=== PATIENT | male | born 1970 | race Caucasian/White ===

== ENCOUNTER 2019-08-23 08:00 | Outpatient (CLI) | payer OTHER, SELFPAY ==
--- NOTE | 2019-08-23 08:02 | ECG_ITS ---
Measurements Intervals [place] Rate: 69 P: 34 HI: 181 QRS: 16 QRSD: 95 T: 20 QT: 370 QTc: 396 Interpretive Statements SINUS RHYTHM DELAYED PRECORDIAL R/S TRANSITION BASELINE ARTIFACT- V3-V6 BORDERLINE ECG Electronically Signed On 08-23-2019 8:29:38 SENIOR ACCOUNTING SPECIALIST by Otto Sidhu D.O.
== END 2019-08-23 08:01 | disposition home or self-care (01) ==
LOC: ANHSURGERY 08:02
PROVIDERS: PCP Emergency Medicine; Visit Provider Surgery
DX: I25.2 Old myocardial infarction (principal)
CPT/HCPCS: 93005

== ENCOUNTER 2019-09-01 00:05 | Day surgery (SDC) | payer OTHER, SELFPAY ==
[2019-08-18 13:32] VITALS: BMI 25.3
--- NOTE | 2019-08-29 12:56 | PM.SD ---
Same Day Admit/Disch: HPI History of Present Illness Chief complaint: Umbilical Hernia Narrative: Miquel Almazan is a 49 year old male Who has had an umbilical bulge for quite some time. He was seen in our office about 1 year ago and diagnosed with an umbilical hernia. The hernia was really not bothersome and patient decided to hold off on surgery. The bulge however is gotten larger and occasionally tender. He is unable to reduce the hernia. He was seen again in the office in June and is now taken to surgery for umbilical hernia repair possibly with mesh. The patient has had a previous heart attack with interventional stenting. He does have any ejection fraction of 50%. 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 Same Day Admit/Disch: Med Pre-admit Medications Home Medications Medication Instructions Recorded Confirmed Type atorvastatin 40 mg tablet 40 mg PO DAILY 06/24/19 09/01/19 History carvedilol 3.125 mg tablet 3.125 mg PO BID 06/24/19 09/01/19 History lisinopril 20 mg tablet 20 mg PO DAILY 06/24/19 09/01/19 History pantoprazole 40 mg tablet,delayed 40 mg PO DAILY tablet 06/24/19 09/01/19 History release aspirin 81 mg PO DAILY 08/18/19 09/01/19 History hydrocodone-acetaminophen 1 - 2 tablet PO Q6H PRN #7 tablet 09/01/19 Rx ketorolac 10 mg PO Q6H 4 Days #16 tablet 09/01/19 Rx Exam Const: General: comfortable, no acute distress, alert and awake HENMT: Head: normocephalic and atraumatic Mouth: Yes Normal oral and palatal mucosa present Eyes: Conjunctivae: conjunctivae normal Pupils: Equal, round and reactive pupils present EOM: EOMs intact bilaterally Neck: Neck: normal visual inspection, no lymphadenopathy and nontender Resp: Effort & Inspection: normal respiratory effort Auscultation: clear to auscultation bilaterally Cardio: Rate: regular rate Rhythm: regular rhythm Heart sounds: no gallops, no murmurs and no rubs GI: Inspection: non-distended and visible herniation GI Palp: Yes Soft to palpation, No Tenderness to palpation present (GI), No Hepatomegaly present, No Splenomegaly present, Yes Hernia present ( Umbilical hernia primarily above the navel. Nontender. ) and No Ascites present Auscultation: normal bowel sounds Skin: Lesions: no lesions Rashes: no rashes Neuro: General: no focal motor deficits and CN's II-XI intact bilaterally Cranial nerves: Yes Equal, round and reactive pupils present, Yes Bilaterally intact EOM present, Yes facial symmetry and Yes Midline tongue present Speech: normal speech Motor exam (neuro): 5/5 motor strength present throughout and Motor abnormalities not present Extrem: General: no clubbing, cyanosis or edema and edema Psych: Affect: normal affect Thought process: Normal thought process present Insight: Good insight present (Psych) DS: Summary Time Spent with Patient Time attestation: Total time spent providing and/or coordinating discharge services: DS: Diagnosis Admitting Diagnosis Admitting Diagnosis: Umbilical hernia Discharge Diagnosis (1) Umbilical hernia: Qualifiers: Obstruction and gangrene presence: without obstruction or gangrene Qualified Code(s): K42.9 - Umbilical hernia without obstruction or gangrene Code(s): K42.9 - Umbilical hernia without obstruction or gangre
[2019-09-01] MEDS: LACTATED RINGERS 1,000 ML 30 ML IV CONT (09:57)
--- NOTE | 2019-09-01 10:15 | WPDHPUPDATE1 ---
History and Physical Update Update Date/Time: 09/01/19 10:15 History and Physical has been reviewed, including an updated exam of the patient. There are NO changes in the patient's condition. Risks, benefits, and alternatives have been discussed and questions answered. Patient agrees to proceed with procedure.
--- NOTE | 2019-09-01 10:26 | P.PNAN_ITS ---
Anes - Initial Pre Proc Eval Procedure: Operation Date: 09/01/19 10:30 Proposed Procedures p Umbilical Hernia Repair, Possible Mesh - Cesar Mcpherson MD Date/Time: 09/01/19 10:26 Surgeon: Cesar Mcpherson MD Pre Op Diagnosis: Umbilical Hernia Patient Data Age: 49 Gender: M Height: 6 ft 1 in Weight: 90.3 kg Allergies Allergy/AdvReac Type Severity Reaction Status Date / Time No Known Allergies Allergy Unverified 09/01/19 09:40 Home Medications Medication Instructions Recorded Confirmed Type atorvastatin 40 mg tablet 40 mg PO DAILY 06/24/19 09/01/19 History carvedilol 3.125 mg tablet 3.125 mg PO BID 06/24/19 09/01/19 History lisinopril 20 mg tablet 20 mg PO DAILY 06/24/19 09/01/19 History pantoprazole 40 mg tablet,delayed 40 mg PO DAILY tablet 06/24/19 09/01/19 History release aspirin 81 mg PO DAILY 08/18/19 09/01/19 History Patient hx anesthesia problems: none Family hx anesthesia problems: none [facility] Past Medical History Medical History History of gastroesophageal reflux (GERD) History of heart attack Surgical History Surgical History History of cardiac cath widows maker heart attack History of hemorrhoidectomy Family History Family History Father Hypertension Sibling Hypertension Unknown Hypertension Social History Social History Smoking status: Never smoker Alcohol intake: current 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 Questions were solicited and answers provided to the satisfaction of the patient/family/POA.
[2019-09-01] MEDS: ceFAZolin 2 GM/D5W 50 ML 2 GM/50 ML BAG IVPB (10:33)
[2019-09-01 11:24] VITALS: BP 130/75; PULSE 64; RESP 20; O2SAT 96
--- NOTE | 2019-09-01 11:25 | PM.PROC ---
Procedure Note - Detailed Date of procedure: 09/01/19 Pre-op diagnosis: Umbilical Hernia Umbilical hernia Post-op diagnosis: same Procedure performed: Umbilical hernia repair with 4.6 cm Parietex underlay mesh Description of procedure: Patient was taken to the operating room and IV sedation was administered. Prep and drape was carried out. The proposed incision along the upper margin of the umbilicus was marked on the skin. Local anesthetic was infiltrated into the skin and the deeper subcutaneous tissues. Incision was made and dissection was carried down through the skin and to the hernia sac. The sac was then dissected free from the umbilical skin and the surrounding subcutaneous tissues. It was dissected down to its neck. Additional local anesthetic was infiltrated into the neck and the fascia surrounding the neck of the hernia sac. The sac was then amputated at its neck. The subcutaneous was undermined around the hernia defect. Additional local was infiltrated around the fascia. I placed a finger inside the hernia defect and checked for any abdominal wall adhesions in the area. None were found. No other hernias were noted. A 4.6 cm Parietex [place] was chosen. It was folded and placed in the defect. Once it symmetrically covered the defect, I placed cranial and caudal transfascial sutures of 0 Ethibond. These sutures were placed in such a fashion that, when tied, they would advance the edges of the hernia defect towards 1 another. These sutures were tied and had the desired effect. I then closed the hernia defect with [id number] mattress sutures of 0 Ethibond. The repair looked quite satisfactory. I then infiltrated additional local all around the areas of the repair. The umbilical skin was tacked to the fascia with 3 0 Vicryl suture. The subcutaneous was closed with 3 0 Vicryl. Subcuticular interrupted 4 O Vicryl skin stitches were placed. The skin was then closed with running 4 0 Monocryl subcuticular suture. Wound was dressed with Exofin surgical adhesive. The patient was awakened and taken to recovery in good condition. Counts were correct x2. Implants: 4.6 cm Parietex hernia mesh Anesthesia: MAC and local (0.5% Marcaine with Exparel) Surgeon: Cesar Mcpherson MD Payroll Accounting Clerk: Jaycee ROMERO Estimated blood loss (mL): 5 Drains: No Packing: No Pathology: none sent Complications: None Condition: stable Disposition: same day Findings: 12 millimeter hernia defect
[2019-09-01 11:50] VITALS: BP 123/88; PULSE 58; RESP 16; O2SAT 99
[2019-09-01 12:01] VITALS: BP 125/88; PULSE 57; RESP 16; O2SAT 98
== END 2019-09-01 12:15 | disposition home or self-care (01) ==
PROVIDERS: PCP Emergency Medicine; Visit Provider Surgery
PROC: (CPT 49585; principal; 2019-09-01 10:30)
DX: K42.9 Umbilical hernia without obstruction or gangrene (principal); K21.9 Gastro-esophageal reflux disease without esophagitis; I25.2 Old myocardial infarction; Z79.82 Long term (current) use of aspirin
CPT/HCPCS: 49585; C1781; C9290; J0690; J2250; J2704; J3010; J7120

== ENCOUNTER 2020-03-24 06:37 | Outpatient (CLI) | payer OTHER, SELFPAY ==
[2020-03-24 08:00] LABS: Potassium 4.3 mmol/L (3.4-5.0)
[2020-03-24 08:02] LABS: Alanine Aminotransferase 34 U/L (4-50); Albumin Level 4.4 g/dL (3.5-5.1); Alkaline Phosphatase 54 U/L (38-126); Anion Gap 8 mmol/L (8-16); Aspartate Amino Transferase 23 U/L (17-59); Bilirubin,Total 0.9 mg/dL (0.2-1.3); Blood Urea Nitrogen 12 mg/dL (9-20); Calcium 9.1 mg/dL (8.4-10.2); Carbon Dioxide 30 mmol/L (22-30); Chloride 104 mmol/L (98-107); Cholesterol 103 mg/dL (0-200); Estimated Glomerular Filt Rate > 60; Glucose 90 mg/dL (75-110); HDL Direct 44 mg/dL; Sodium 142 mmol/L (137-145); Triglycerides 122 mg/dL (<150)
[2020-03-24 08:11] LABS: LDL Cholesterol Direct 38 mg/dL
== END 2020-03-24 06:38 | disposition home or self-care (01) ==
PROVIDERS: PCP Emergency Medicine; Visit Provider Emergency Medicine
DX: E78.5 Hyperlipidemia, unspecified (principal)
CPT/HCPCS: 36415; 80053; 80061

== ENCOUNTER 2020-09-22 06:36 | Outpatient (CLI) | payer OTHER, SELFPAY ==
[2020-09-22 07:08] LABS: Alanine Aminotransferase 35 U/L (4-50); Albumin Level 4.5 g/dL (3.5-5.1); Alkaline Phosphatase 55 U/L (38-126); Anion Gap 7 mmol/L (8-16); Aspartate Amino Transferase 24 U/L (17-59); Bilirubin,Total 0.6 mg/dL (0.2-1.3); Blood Urea Nitrogen 16 mg/dL (9-20); Calcium 9.3 mg/dL (8.4-10.2); Carbon Dioxide 29 mmol/L (22-30); Chloride 106 mmol/L (98-107); Cholesterol 97 mg/dL (0-200); Estimated Glomerular Filt Rate > 60; Glucose 95 mg/dL (75-110); HDL Direct 42 mg/dL; Potassium 4.4 mmol/L (3.4-5.0); Sodium 142 mmol/L (137-145); Triglycerides 131 mg/dL (<150)
[2020-09-22 07:19] LABS: LDL Cholesterol Direct 40 mg/dL
== END 2020-09-22 06:37 | disposition home or self-care (01) ==
PROVIDERS: PCP Emergency Medicine; Visit Provider Emergency Medicine
DX: I10 Essential (primary) hypertension (principal)
CPT/HCPCS: 36415; 80053; 80061

== ENCOUNTER 2021-03-29 06:36 | Outpatient (CLI) | payer OTHER, SELFPAY ==
[2021-03-29 07:37] LABS: Alanine Aminotransferase 50 U/L (4-50); Albumin Level 4.5 g/dL (3.5-5.1); Alkaline Phosphatase 58 U/L (38-126); Anion Gap 7 mmol/L (8-16); Aspartate Amino Transferase 27 U/L (17-59); Bilirubin,Total 0.5 mg/dL (0.2-1.3); Blood Urea Nitrogen 17 mg/dL (9-20); Calcium 9.2 mg/dL (8.4-10.2); Carbon Dioxide 29 mmol/L (22-30); Chloride 103 mmol/L (98-107); Cholesterol 100 mg/dL (0-200); Estimated Glomerular Filt Rate > 60; Glucose 103 mg/dL (65-110); HDL Direct 42 mg/dL; Potassium 4.4 mmol/L (3.4-5.0); Sodium 139 mmol/L (137-145); Triglycerides 97 mg/dL (<150)
[2021-03-29 07:47] LABS: LDL Cholesterol Direct 37 mg/dL
[2021-03-29 08:06] LABS: Prostate Specific Antigen 0.3 ng/mL (< OR = 4.0)
== END 2021-03-29 06:37 | disposition home or self-care (01) ==
PROVIDERS: PCP Emergency Medicine; Visit Provider Emergency Medicine
DX: Z12.5 Encounter for screening for malignant neoplasm of prostate (principal); E78.5 Hyperlipidemia, unspecified
CPT/HCPCS: 36415; 80053; 80061; 84153; G0103

== ENCOUNTER → 2022-04-16 15:53 | Outpatient (CLI) | payer OTHER, SELFPAY ==
--- NOTE | ~2022-04-16 | XR_ITS ---
EXAMINATION: XR foot LT 2V DATE: 04/16/2022 16:45 INDICATION: Lump and pain at the dorsal side of the left foot. Follicular cyst of the skin and subcut aneous tissues. TECHNIQUE: 2 views of left foot were obtained. COMPARISON: None. FINDINGS: Bone alignment is normal. No fracture. There is mild osteoarthritis of first metatarsophala ngeal joint and some of the midfoot and interphalangeal joints. There are enthesophytes at the memory care program resident ior and plantar aspects of calcaneal tuberosity. IMPRESSION: 1. Mild polyarticular osteoarthritis. Reviewed, dictated and finalized at location A.
== END ==
PROVIDERS: PCP Emergency Medicine; Visit Provider Emergency Medicine
DX: R52 Pain, unspecified (principal); L72.9 Follicular cyst of the skin and subcutaneous tissue, unspecified; M19.072 Primary osteoarthritis, left ankle and foot
CPT/HCPCS: 73620

== ENCOUNTER 2022-05-13 06:34 | Outpatient (CLI) | payer OTHER, SELFPAY ==
[2022-05-13 07:14] LABS: Alanine Aminotransferase 48 U/L (6-50); Albumin Level 4.5 g/dL (3.5-5.1); Alkaline Phosphatase 60 U/L (38-126); Anion Gap 11 mmol/L (8-16); Aspartate Amino Transferase 29 U/L (17-59); Bilirubin,Total 0.7 mg/dL (0.2-1.3); Blood Urea Nitrogen 16 mg/dL (9-20); Calcium 8.8 mg/dL (8.4-10.2); Carbon Dioxide 27 mmol/L (22-30); Chloride 104 mmol/L (98-107); Cholesterol 112 mg/dL (0-200); Estimated Glomerular Filt Rate > 60; Glucose 100 mg/dL (65-110); HDL Direct 39 mg/dL; Potassium 4.4 mmol/L (3.4-5.0); Sodium 142 mmol/L (137-145); Triglycerides 135 mg/dL (<150)
[2022-05-13 07:25] LABS: LDL Cholesterol Direct 50 mg/dL
[2022-05-13 07:44] LABS: Prostate Specific Antigen 0.4 ng/mL (< OR = 4.0)
== END 2022-05-13 06:35 | disposition home or self-care (01) ==
LOC: ANHLAB 06:35
PROVIDERS: PCP Emergency Medicine; Visit Provider Emergency Medicine
DX: E78.5 Hyperlipidemia, unspecified (principal); I10 Essential (primary) hypertension; Z12.5 Encounter for screening for malignant neoplasm of prostate
CPT/HCPCS: 36415; 80053; 80061; 84153; G0103

== ENCOUNTER 2023-02-21 06:42 | Outpatient (CLI) | payer BC, SELFPAY ==
[2023-02-21 08:14] LABS: Alanine Aminotransferase 71 U/L (6-50); Albumin Level 4.4 g/dL (3.5-5.1); Alkaline Phosphatase 56 U/L (38-126); Anion Gap 8 mmol/L (8-16); Aspartate Amino Transferase 32 U/L (17-59); Bilirubin,Total 0.8 mg/dL (0.2-1.3); Blood Urea Nitrogen 15 mg/dL (9-20); Carbon Dioxide 30 mmol/L (22-30); Chloride 103 mmol/L (98-107); Cholesterol 118 mg/dL (0-200); Estimated Glomerular Filt Rate > 60; Glucose 91 mg/dL (65-110); HDL Direct 38 mg/dL; Sodium 141 mmol/L (137-145); Triglycerides 174 mg/dL (<150)
[2023-02-21 08:25] LABS: LDL Cholesterol Direct 48 mg/dL
== END 2023-02-21 06:43 | disposition home or self-care (01) ==
PROVIDERS: PCP Emergency Medicine; Visit Provider Emergency Medicine
DX: I10 Essential (primary) hypertension (principal); E78.2 Mixed hyperlipidemia
CPT/HCPCS: 36415; 80053; 80061

== ENCOUNTER 2023-04-09 06:40 | Outpatient (CLI) | payer BC, SELFPAY ==
[2023-04-09 07:34] LABS: Alanine Aminotransferase 62 U/L (6-50); Albumin Level 4.5 g/dL (3.5-5.1); Alkaline Phosphatase 55 U/L (38-126); Aspartate Amino Transferase 40 U/L (17-59); Bilirubin,Total 0.9 mg/dL (0.2-1.3)
== END 2023-04-09 06:41 | disposition home or self-care (01) ==
LOC: ANHLAB 06:42
PROVIDERS: PCP Emergency Medicine; Visit Provider Emergency Medicine
DX: K76.9 Liver disease, unspecified (principal)
CPT/HCPCS: 36415; 80076

== ENCOUNTER 2023-12-02 16:53 | Outpatient (CLI) | payer BC, SELFPAY ==
[2023-12-02 17:36] LABS: Alanine Aminotransferase 37 U/L (6-50); Albumin Level 4.5 g/dL (3.5-5.1); Alkaline Phosphatase 65 U/L (38-126); Anion Gap 9 mmol/L (4-12); Aspartate Amino Transferase 21 U/L (17-59); Bilirubin,Total 0.6 mg/dL (0.2-1.3); Blood Urea Nitrogen 18 mg/dL (9-20); Calcium 9.1 mg/dL (8.4-10.2); Carbon Dioxide 23 mmol/L (22-30); Chloride 105 mmol/L (98-107); Estimated Glomerular Filt Rate > 60; Glucose 90 mg/dL (65-110); Potassium 3.9 mmol/L (3.4-5.0); Sodium 137 mmol/L (137-145)
== END 2023-12-02 16:54 | disposition home or self-care (01) ==
PROVIDERS: PCP Emergency Medicine; Visit Provider Nurse Practitioner Adult Health
DX: I25.5 Ischemic cardiomyopathy (principal)
CPT/HCPCS: 36415; 80053

== ENCOUNTER 2024-11-28 12:59 | Outpatient (CLI) | payer BC, SELFPAY ==
--- NOTE | ~2024-11-28 | US_ITS ---
EXAMINATION: US joint non vasc ltd LT DATE: 11/28/2024 13:22 INDICATION: Synovial cyst of the left popliteal space TECHNIQUE: Multiple grayscale and Doppler ultrasound images of the left popliteal fossa were obtained . COMPARISON: None FINDINGS: Normal directional flow identified in the left popliteal and gastrocnemius veins. No Campos's cyst or other abnormal masses or fluid collections identified. IMPRESSION: 1. No Campos's cyst or other abnormal masses or fluid collections at the left popliteal fossa. Reviewed, dictated and finalized at location A. IMPRESSION: 1. No Campos's cyst or other abnormal masses or fluid collections at the left po pliteal fossa.
== END 2024-11-28 13:00 | disposition home or self-care (01) ==
LOC: MICIMG 13:00
PROVIDERS: PCP Emergency Medicine; Visit Provider Emergency Medicine
DX: M71.22 Synovial cyst of popliteal space [Baker], left knee (principal)
CPT/HCPCS: 76882

== ENCOUNTER 2024-12-07 08:52 | Outpatient (CLI) | payer BC, SELFPAY ==
--- NOTE | ~2024-12-07 | CT_ITS ---
Procedure: CT knee LT wo con Ordering provider: Michael Walsh MD History: . M25.562 - Pain in left knee . Comparison: None. Technique: Thin slice axial CT of the No IV contrast was given. Sagittal and coronal reformatted imag es were also obtained and reviewed. The dose-length product was mGy-cm. Findings: BONES: No fracture or dislocation. JOINT SPACES: Mild to moderate narrowing of the medial and lateral compartments. SOFT TISSUES: The ACL is not well demonstrated. IMPRESSION: No acute fracture or dislocation The ACL is not demonstrated on the reconstruction images. MRI is advised. Reviewed, dictated and finalized at location A.
--- NOTE | ~2024-12-07 | MMUS_ITS ---
EXAMINATION: MM diagnostic joceline LT w brenda, US breast LT complete HISTORY: Left breast discomfort TECHNIQUE: Additional 3-D tomosynthesis images of the breasts were performed and synthetic 2-D images were generated. CAD analysis was submitted and interpreted. High resolution complete left breast ult rasound was performed. COMPARISON: No prior studies for comparison. BREAST PARENCHYMAL COMPOSITION: Not dense: There are scattered areas of fibroglandular density. FINDINGS: MAMMOGRAPHIC FINDINGS: There is asymmetric gynecomastia with more fibroglandular content in the left breast. No discrete cathy picious masses, architectural distortion or clustered calcifications. ULTRASOUND: Complete US of all 4 quadrants of the left breast/s and retroareolar region was reviewed. Subareolar hypoechoic soft tissue is present, consistent with gynecomastia. No discrete suspicious masses are id entified. IMPRESSION: 1. No evidence for malignancy in the left breast. Bilateral asymmetric gynecomastia. 2. Recommend clinical follow-up of gynecomastia. BI-RADS Category 2: Benign finding(s). Reviewed, dictated and finalized at location B. IMPRESSION: 1. No evidence for malignancy in the left breast. Bilateral asymmetric gynecoma stia. 2. Recommend clinical follow-up of gynecomastia. BI-RADS Category 2: Benign finding(s).
== END 2024-12-07 08:53 | disposition home or self-care (01) ==
LOC: MICIMG 08:52
PROVIDERS: PCP Emergency Medicine; Visit Provider Emergency Medicine
DX: M25.562 Pain in left knee (principal); R07.89 Other chest pain; N64.4 Mastodynia
CPT/HCPCS: 73700; 76641; 77061; 77065; G0279

== ENCOUNTER 2025-03-09 07:06 | Outpatient (CLI) | payer BC, SELFPAY ==
--- NOTE | ~2025-03-09 | XR_ITS ---
Left Knee Technique: AP, lateral, and sunrise views were obtained. Clinical History: Pain Findings: No fracture or dislocation is seen. Osseous alignment is anatomic. Joint spaces are preserved without degenerative or erosive change. Soft tissues are unremarkable. No joint effusion is seen. Impression: Unremarkable left knee radiographs. Reviewed, dictated and finalized at location . Impression: Unremarkable left knee radiographs.
== END 2025-03-09 07:07 | disposition home or self-care (01) ==
PROVIDERS: PCP Emergency Medicine; Visit Provider Emergency Medicine
DX: M25.562 Pain in left knee (principal)
CPT/HCPCS: 73564

== ENCOUNTER 2025-03-10 06:39 | Outpatient (CLI) | payer BC, SELFPAY ==
--- OUTSIDE RECORDS SUMMARY | 2025-03-10 06:42 | XMS_ITS | Encounter Summary ---
Author Organization [facility] Address [address] [place] [id number] Care Team Providers Care Time Study Statistician Name Role Phone Michael Walsh MD Primary Care Provide r Encounter Details Date Type Department Care Team (Late st Contact Info) Description 11/05/2016 Orders Only [facility] ProviderNohemy MD [address] [place] [id number] Social History Tobacco Use Types Packs/Day Years Used Date Smoking Tobacco: Never Alcohol Use Standard Drinks/Week Comments Yes 0 (1 standard drink = 0.6 oz pur e alcohol) Sex and Gender Information Value Date Recorded Sex Assigned at Not on file Legal Sex Male 3:56 AM [employer] Gender Identity Not on file Sexual Orientation Not on file documented as of this encounter Plan of Treatment Not on file documented as of this encounter Procedures Procedure Name Priority Date/Time Associated Diagnosis Comments CARDIOLOGY REPORT 11/05/2016 documented in this encounter Results * CARDIOLOGY REPORT (11/05/2016) Anatomical Region Laterality Modality Other Narrative 11/05/2016 Ordered by an unspecified provider. Historical Provider [facility] DIA[facility] ROSS Final Result documented in this encounter Visit Diagnoses Not on filedocumented in this encounter Care Teams Time Study Statistician Relationship Specialty Start Date End Date Michael Walsh MD [id number] [place] [id number] PCP - General 10/17/16 documented as of this encounter
--- OUTSIDE RECORDS SUMMARY | 2025-03-10 06:42 | XMS_ITS | Clinical Summary ---
Author Organization [facility] [place] [address] Address [address] [place] [address] Care Team Providers Care Oil Change Technician Name Role Phone Michael Walsh MD Primary Care Provide r Allergies No known active allergies Medications aspirin 81 mg chewable tablet chew 1 tablet by oral route every day 0 0 07/15/[address] (PROTONIX) 40 mg EC tablet Take 1 tablet (40 mg total) by mouth daily 05/09/2019 Active ALPRAZolam (XANAX) 0.5 mg tablet Take 1 tablet (0.5 mg total) by mouth 2 (two) times a day as needed for anxiety 03/07/2024 Active carvediloL (COREG) 6.25 mg tablet TAKE 1 TABLET TWICE A DAY WITH MEALS 180 tablet 3 05/06/2024 Active empagliflozin (JARDIANCE) 10 mg tablet Take 1 tablet (10 mg total) by mouth daily 30 tablet 11 12/09/2024 Active atorvastatin (LIPITOR) 40 mg tablet TAKE 1 TABLET DAILY 90 tablet 12/14/2024 Active sacubitriL-vals jessy (Entresto) 49-51 mg tablet TAKE 1 TABLET BY MOUTH TWICE DAILY 180 tablet 01/16/2025 Active tirzepatide 2.5 mg/0.1 mL syringe Inject under the skin Active Active Problems Problem Noted Date Diagnosed Date Sensorineural hearing loss, asymmetrical 024 Vestibular neuronitis of left ear 05/12/2024 Hearing loss of left ear 05/11/2024 Vertigo 05/03/2024 Tinnitus of left ear 05/03/2024 Cardiac arrhythmia 03/14/2024 Malaise 07/29/2023 Supraventricular tachycardia, nonsustained 06/20 Nonsustained ventricular tachycardia 06/20/2020 Coronary artery disease invo lving ho-chunk coronary artery of ho-chunk heart without angina pectoris 03/31/2017 Assessment & Plan (03/31/2017 6:21 PM CDT): Coronary artery disease is stable with no angina since his NV. Hypercholesterolemia 03/31/2017 Assessment & Plan (03/31/2017 6:20 PM CDT): Lipid abnormalities are at goal on atorvastatin 40 mg daily Cardiomyopathy, ischemic 03/31/2017 Assessment & Plan (03/31/2017 6:21 PM CDT): EF remains in low at 40%, somewhat improved though since his NV. Excellent exertional tolerance despite poor ejection fraction Soft blood pressure and did not tolerate titrating the carvedilol. Implantable cardioverter-defibrillator (ICD) in situ 10/16/2016 Overview (03/22/2024): Biotronik Intica Dalton Single ICD. Dx; ICM, VF. DOI 03/16/2024-Dr Live. Chronic lead 12/01/2013. Biotronik remote monitoring Assessment & Plan (03/31/2017 6:21 PM CDT): Checked earlier this month, no defibrillations or nonsustained V-tach. Encounters Date Type Department Care Team Description 02/20/2025 8:15 AM CDT Office Visit [facility] Cardiology [address] [facility] [address] [place] [phone] Byron Dolan MD Coronary artery disease involving ho-chunk coronary artery of ho-chunk heart without angina pectoris (Primary Dx); Cardiomyopathy, ischemic; Supraventricular tachycardia, nonsustained; Implantable cardioverter-defibri llator (ICD) in situ 01/10/2025 10:15 AM CDT Ancillary Procedure [facility] Cardiology [address] [facility] [address] [place] [phone] Cardiomyopathy, ischemic; Implantable cardioverter-defibri llator (ICD) in situ 12/08/2024 Telephone [facility] Cardiology [address] [place] [address] Byron Dolan MD from Last 3 Months Surgical History Surgery Date Site/Laterality Comments CORONARY STENT PLACEMENT Coronary Stent Placement CARDIAC DEFIBRILLATOR PLACEMENT INGUINAL HERNIA REPAIR Medical History Medical History Date Comments Cardiovascular disease Coronary Artery Disease Myocardial infarction (HCC) Myoc ardial infarction Hx Other Medical Cardiomyopathy Hx Other Medical V-fib arrest Hx Other Medical Anoxic encephal opathy Cardiomyopathy Tinnitus Dizziness Allergic rhinitis Ear problems HL (hearing loss) Family History Medical History Relation Name Comments Hypertension Father Hypertension; Other Mother CAD, stent 65 y .o.; Relation Name Status Comments Father Mother Social History Tobacco Use Types Packs/Day Years Used Date Smoking Tobacco: Never Smokeless Tobacco: Never Tobacco Cessation:Counseling Given: Not Answered Alcohol Use Standard Drinks/Week Comments Yes 0 (1 standard drink = 0.6 oz pur e alcohol) [facility] Utilities Answer Date Recorded In the past 12 months has [email or web address], gas, oil, or water [employer] threatened to shut off services in your home? No 05/04/2024 Social Connection and Isolation Panel Answer Date Recorded In a typical week, how many times do you talk on the phone with family, friends, or neighbors? More than three times a week 05/04/2024 How often do you get togethe r with friends or relatives? More than three times a week 05/04/2024 How often do you attend chur or religion services? Never 05/04/2024 Do you belong to any clubs o r organizations such as taoist groups, unions, fraternal or athletic groups, or school groups? No 05/04/2024 How often do you attend meet ings of the clubs or organizations you belong to? Never 05/04/2024 Are you , , di vorced, , never , or living with a partner? 05/04/2024 AUDIT-C Answer Date Recorded Q1: How often do you have a drink containing alc ohol? 2-3 times a week 05/12/2024 Q2: How many drinks containi ng alcohol do you have on a typical day when you are drinking? 1 or 2 05/12/2024 Q3: How often do you have si x or more drinks on one occasion? Monthly 05/12/2024 Overall Financial Resource Strain (CARDIA) Answe r Date Recorded How hard is it for you to pa y for the very basics like food, housing, medical care, and heating? Not very hard 05/04/2024 Hunger Vital Sign Answer Date Recorded Within the past 12 months, y ou worried that your food would run out before you got the money to buy more. Never true 05/04/20 24 Within the past 12 months, t he food you bought just didn't last and you didn't have money to get more. Never true 05/04/2024 PRAPARE - Transportation Answer Date Re corded In the past 12 months, has l ack of transportation kept you from medical appointments or from getting medications? No 04/19 In the past 12 months, has l ack of transportation kept you from meetings, work, or from getting things needed for daily living? No 05/04/2024 Housing Stability Vital Sign Answer Thee e Recorded In the last 12 months, was t here a time when you were not able to pay the mortgage or rent on time? No 05/04/2024 In the past 12 months, how m any times have you moved where you were living? 0 05/04/2024 At any time in the past 12 m [facility], were you homeless or living in a fci (including now)? No 05/04/2024 Personal Safety Answer Date Recorded Have you ever been in or are you currently in a harmful physical or emotional relationship or is someone making you feel afraid or unsafe? 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 Gender Identity Not on file Sexual Orientation Not on file Obstetrics History Last Filed Vital Signs Vital Sign Reading Time Taken Comments Blood Pressure 108/70 02/20/2025 8:17 AM CDT Pulse 76 02/20/2025 8:17 AM CDT Temperature 36.6 C (97.8 F) 05/04/2024 3:00 PM CDT Respiratory Rate 18 09/30/2024 10:59 AM CDT Oxygen Saturation 96% 02/20/2025 8:17 AM CDT Inhaled Oxygen Concentration - - Weight 96.2 kg (212 lb) 02/20/2025 8:17 AM CDT Height 185.4 cm (6' 1) 02/20/2025 8:17 AM CDT Body Mass Index 27.97 02/20/2025 8:17 AM CDT Plan of Treatment Health Maintenance Due Date Last Done Comments Colon Cancer Screening-Colonoscopy 1968 Depression Screening 1968 Hepatitis C Screening 1970 Prostate Cancer Screening-PSA 1968 DTaP/Tdap/Td Vaccine (1 - Tdap) 01/25/1979 Hepatitis B Screening 01/25/1986 Regular Well Visit/Exam 18-64 01/25/1986 Zoster Vaccine (1 of 2) 01/25/2018 Influenza Vaccine (#1) 2025 07/20/2017 Pneumococcal vaccine <65 Aged Out No longer eligible based on patient's age to complete this topic Medical Devices Implanted Type Area Osd Clerk Device Identifier Shelf Expiration Date Model / Serial / Lot [employer] Intica Dalton 7 Defibrillator Cardiac Sterile Latex Free Vr-T Dx [id number] - [id number] - [id number] Implanted:Qty: 1 on 03/16/2024 by Juma Live MD at [facility] ICD Left: Chest [employer] Inc [id number] 07/19/2025 [id number] / [id number] / Biotronik Rv Lead Linox Smart Dx 15-12/01/2013 Implanted: 014 (Quantity not on file) Lead Heart [employer] C.R.M. LINOX SMART DX [id number] / [id number] / Explanted Type Area Osd Clerk Device Identifier Shelf Expiration Date Model / Serial / Lot Icd-12/01/2013 Implanted:2013 (Quantity not on file) Explanted:Qty: 1 on 03/16/2024 by Juma Live MD at [facility] ICD Chest Biotronik Inc ICM, VF Procedures Procedure Name Priority Date/Time Associated Diagnosis Comments POCT LIPID PANEL Routine 02/20/2025 12:1 1 PM CDT Coronary artery disease involving ho-chunk coronary artery of ho-chunk heart without angina pectoris DEVICE CHECK - REMOTE Routine 01/19/2025 5:17 PM CDT Cardiomyopathy, ischemic Implantable cardioverter-defibr illator (ICD) in situ from Last 3 Months Results * POCT lipid panel (02/20/2025 12:11 PM CDT) Cholesterol, POC 109 <200 MG/DL HDL, POC 46 >=40 mg/dL Triglycerides, POC 128 <=149 mg/dL LDL Cholesterol POC 37 <=129 mg/dL Chol/HDL Ratio, POC 0.8 NONE Non-HDL Cholesterol, POC 63 NONE mg/dL Cholesterol Total, POC 109 30 - 199 mg/dL Capillary blood 02/20/2025 1 2:11 PM CDT Byron Dolan MD POINT OF CARE TEST O RDERABLES Final Result * DEVICE CHECK - REMOTE (01/19/2025 5:17 PM CDT) Anatomical Region Laterality Modality Other Narrative 02/24/2025 12:29 PM CDT Biotronik Single ICD. Dx; ICM, VF. DOI 12/01/2013. Biotronik remote monitoring Q3 mo, office device checks Q1 yr. BATTERY ADVISORY. Routine VDI ICD Remote. Transmission attached. Battery status 3.17 V, battery at [employer]TE[employer] Stable Charge time and Shock impedance. Stable lead impedances, pacing, and sensing threshold. Presenting rhythm: /VS VAUDEVILLE ACTOR-0 % (2) AT/AF episodes noted. IEGM demonstrates interference on atrial and ventricular channels. (0) Ventricular tachy arrhythmias detected. Medication: ASA 81 mg, carvedilol 6.25 mg, Entresto 49-51 mg Follow up: Office Pacemaker/ICD scheduled 05/03/25 Biotronik remote 6-7 months Cesar Shepard RN Byron Dolan MD [facility] CARDIAC SERVICES PROCEDURES Final Result from Last 3 Months Insurance [employer] [place] [employer] [place] [employer] [place] Member Subscriber Plan / Payer ( fective 2022-Present) Name:Miquel Almazan Relation to Subscriber:Self Name:Miquel Almazan Payer ID:[id number] (NAIC) Type:BC OTHER Address: [facility] [id number] [place] [id number] Advance Directives For more information, please contact: [phone] * Full Code (Latest Code Status on File) Date Activated Date Inactivated Comments 05/03/2024 6:07 PM 05/04/2024 10:36 PM Care Teams Oil Change Technician Relationship Specialty Start Date End Date Michael Walsh MD [address] [place] [address] PCP - General 10/17/16
[2025-03-10 08:35] LABS: Alanine Aminotransferase 32 U/L (6-50); Albumin Level 4.5 g/dL (3.5-5.1); Alkaline Phosphatase 60 U/L (38-126); Anion Gap 10 mmol/L (4-12); Aspartate Amino Transferase 25 U/L (17-59); Bilirubin,Total 1.0 mg/dL (0.2-1.3); Blood Urea Nitrogen 14 mg/dL (9-20); Calcium 9.3 mg/dL (8.4-10.2); Carbon Dioxide 25 mmol/L (22-30); Chloride 106 mmol/L (98-107); Cholesterol 90 mg/dL (0-200); Estimated Glomerular Filt Rate > 60; Glucose 74 mg/dL (65-110); HDL Direct 44 mg/dL; Potassium 4.2 mmol/L (3.4-5.0); Sodium 141 mmol/L (137-145); Total Protein 7.6 g/dL (6.3-8.2); Triglycerides 94 mg/dL (<150)
[2025-03-10 09:13] LABS: Prostate Specific Antigen 0.4 ng/mL (< OR = 4.0)
[2025-03-17 04:07] LABS: Free Testosterone (Direct) 9.7 pg/mL (7.2-24.0)
== END 2025-03-10 06:40 | disposition home or self-care (01) ==
LOC: ANHLAB 06:40
PROVIDERS: PCP Emergency Medicine; Visit Provider Emergency Medicine
DX: E55.9 Vitamin D deficiency, unspecified (principal); E78.5 Hyperlipidemia, unspecified; R97.20 Elevated prostate specific antigen [PSA]
CPT/HCPCS: 36415; 80053; 80061; 82306; 84153; 84402; 84403; G0103